=== PATIENT | female | born 1985 | race African-American/Black ===

== ENCOUNTER 2016-07-22 19:45 | Emergency (ER) | payer OTHER ==
--- NOTE | ~2016-07-22 | CT71 ---
[facility]. [facility] A Service [facility] RADIOLOGY TEXT RESULTS PATIENT: ANNELISE MENA LOCATION: SED : 83 UNIT #: [id number] AGE: [address]: Srinivas Dumont MD SEX: F ORDER DR: [id number] [place] [id number] MR#: [id number] Acc #: [id number] NAME: ANNELISE MENA : 1985 SEX: F STUDY DATE/TIME: 07/22/2016 20:07 UNIT: SED ROOM: STUDY DESCRIPTION: CT Head Wo Contrast Attending Physician: Srinivas Dumont M.D. Ordering Physician: Srinivas Dumont M.D. MEDICAL IMAGING REPORT This report is preliminary unless electronic signature is present. EXAM CT of brain without contrast. DATE OF EXAM 07/22/2016 HISTORY Pain for 3 days. Right side pain. No injury. TECHNIQUE NOTE: This CT exam was performed with one or more of the following radiation dose reduction techniques: automatic exposure control, adjustment of mA and/or kV according to patient size, and iterative reconstruction. FINDINGS CT brain without contrast demonstrates no intracranial hemorrhage, mass or edema. No midline shift or ventricular dilatation or extraaxial fluid collection. Probable incidental prominent perivascular space along the inferior margin of the right lentiform nucleus, likely incidental. IMPRESSION Negative head CT. Dictated by... Christiano Sims M.D. THIS IS AN ELECTRONICALLY VERIFIED REPORT Christiano Sims M.D. at 07/23/2016 11:38 PM DFL/kisha TD: 07/23/2016 15:44 [facility] A Service [facility] RADIOLOGY TEXT RESULTS PATIENT: ANNELISE MENA LOCATION: SED : 83 UNIT #: [id number] AGE: [address]: Srinivas Dumont MD SEX: F ORDER DR: JOB #: [id number] MEDICAL IMAGING REPORT
[~2016-07-22 19:45] MED LIST: LINZESS145 MCG PO; LOVENOX80 MG/0.8 INJ; NIFEDICAL PO
[2016-07-22 19:47] LABS: BASOPHIL# 0.1 X10e3 (0-0.3); BASOPHIL% 1.1 % (0-2.5); DIFF IND NO; EOSINOPHIL# 0.2 X10e3 (0-0.7); EOSINOPHIL% 1.7 % (0.0-7.0); HEMATOCRIT 40.7 % (35.0-45.0); HEMOGLOBIN 13.2 gm/dL (12.0-16.0); LYMPHOCYTE# 4.4 X10e3 (1.0-3.5); LYMPHOCYTE% 43.7 % (17.0-45.0); MEAN CELL VOLUME 91.4 FL (83-96); MEAN CORPUSCULAR HEMOGLOBIN 29.5 PG (28-34); MEAN CORPUSCULAR HGB CONC 32.3 g/dL (30-36); MEAN PLATELET VOLUME 8.5 FL (6.5-11.5); MONOCYTE# 0.7 X10e3 (0-1.0); MONOCYTE% 7.2 % (3.0-12.0); NEUTROPHIL# 4.7 X10e3 (1.5-7.1); NEUTROPHIL% 46.3 % (40-75); PLATELET COUNT 354 X10e3 (140-420); RED BLOOD COUNT 4.46 X10e (3.90-5.30); RED CELL DISTRIBUTION WIDTH 13.4 % (11.0-15.5); WHITE BLOOD COUNT 10.1 X10e3 (4.0-10.5)
[2016-07-22 19:56] LABS: PROTHROMBIN TIME (PATIENT) 10.8 SECONDS (9.5-12.4)
[2016-07-22 20:03] LABS: PARTIAL THROMBOPLASTIN TIME 27.2 SECONDS (25.6-38.1)
[2016-07-22 20:05] LABS: BLOOD UREA NITROGEN 13 mg/dL (9-23); BUN/CREATININE RATIO 14.44; CALCIUM SERUM 9.6 mg/dL (8.4-10.2); CARBON DIOXIDE 25 mmol/L (22-31); CHLORIDE 102 mmol/L (100-111); CREATININE SERUM 0.9 mg/dL (0.6-1.4); GLOM FILT RATE Estimated ABOVE60 mL/min (>60); GLUCOSE FASTING 103 mg/dL (70-110); POTASSIUM 3.8 mmol/L (3.5-5.1); SODIUM 135 mmol/L (135-145)
== END 2016-07-22 20:51 | disposition home or self-care (01) ==
LOC: SED 19:45
PROVIDERS: Emergency Medicine
DX: G43.909 Migraine, unspecified, not intractable, without status migrainosus (principal); I63.9 Cerebral infarction, unspecified
CPT/HCPCS: 36415; 70450; 80048; 84703; 85025; 85610; 85730; 96361; 96374; 96375; 99284; J0780; J1200